=== PATIENT | female | born 1965 | race Caucasian/White ===

== ENCOUNTER → 2018-03-06 | Outpatient (CLI) | payer OTHER ==
[~2018-03-06] MED LIST: CIPROFLOXACIN500 M1 PO; FLAGYL500 MG PO; NORCO 5-325 TA1 EACH PO; ZOFRAN4 MG PO
== END ==
LOC: M.RAD 02-22 12:04 → M.ULTRA 08:32 → M.RAD 09:30
DX: Z12.31 Encounter for screening mammogram for malignant neoplasm of breast (principal); Z13.820 Encounter for screening for osteoporosis; K76.0 Fatty (change of) liver, not elsewhere classified; N91.2 Amenorrhea, unspecified; R94.5 Abnormal results of liver function studies; Z78.0 Asymptomatic menopausal state

== ENCOUNTER → 2018-03-13 | Outpatient (CLI) | payer OTHER | LOC: M.ULTRA 08:50 | DX: N63.21 Unspecified lump in the left breast, upper outer quadrant (principal) ==

== ENCOUNTER → 2018-11-01 | Outpatient (CLI) | payer OTHER ==
[2018-11-01 08:39] LABS: CREATININE 0.8 mg/dL (0.6-1.3)
== END ==
LOC: M.CT 08:00 → M.LAB 08:13 → M.CT 09:30
PROVIDERS: Internal Medicine Cardiovascular Disease
DX: I31.3 Pericardial effusion (noninflammatory) (principal); R91.1 Solitary pulmonary nodule; E11.9 Type 2 diabetes mellitus without complications; E78.5 Hyperlipidemia, unspecified; Z90.49 Acquired absence of other specified parts of digestive tract; Z87.891 Personal history of nicotine dependence; Z72.89 Other problems related to lifestyle; Z79.899 Other long term (current) drug therapy

== ENCOUNTER → 2018-12-11 | Outpatient (CLI) | payer OTHER | LOC: M.RAD 11-23 10:38 → M.PUL 12:32 → M.RAD 13:40 | DX: N60.02 Solitary cyst of left breast (principal); R06.02 Shortness of breath; Z87.891 Personal history of nicotine dependence ==